=== PATIENT | female | born 1985 | race Caucasian/White ===

== ENCOUNTER 2018-04-02 22:30 | Emergency (ER) | payer OTHER ==
[2018-04-02] MEDS ORDERED: SODIUM CHLORIDE 0.9% 1,000 ML IV ONE (22:47)
[2018-04-02] MEDS ORDERED: METOCLOPRAMIDE 10 MG/2 ML VIAL IVP STA (22:47)
[2018-04-02] MEDS ORDERED: MORPHINE 2 MG/ML CARPUJECT IVP STA (22:47)
[2018-04-02 22:57] LABS: BILIRUBIN,URINE NEGATIVE (NEGATIVE); GLUCOSE, URINE (UA) NEGATIVE (NEGATIVE); KETONES,URINE (UA) NEGATIVE (NEGATIVE); LEUKOCYTE ESTERASE, URINE NEGATIVE (NEGATIVE); NITRITE,URINE NEGATIVE (NEGATIVE); OCCULT BLOOD,URINE LARGE (NEGATIVE); PROTEIN,URINE NEGATIVE (NEGATIVE); UROBILINOGEN,URINE 0.2 (NORMAL) E.U./dL (NORMAL)
[2018-04-02 22:58] LABS: BASOPHILS % (AUTO) 0.4 %; EOSINOPHILS # (AUTO) 0.2 10^3/uL (0.0-0.7); EOSINOPHILS % (AUTO) 2.3 %; HGB - HEMOGLOBIN 12.6 g/dL (12.0-16.0); LYMPHOCYTES # (AUTO) 4.4 10^3/uL (1.5-3.5); LYMPHOCYTES % (AUTO) 40.8 %; MEAN CORPUSCULAR HEMOGLOBIN 28.7 pg (27.0-31.0); MEAN CORPUSCULAR HGB CONC 33.2 g/dL (32.0-36.0); MEAN CORPUSCULAR VOLUME 86.4 fL (81.0-99.0); MEAN PLATELET VOLUME 8.8 fL (7.9-10.8); MONOCYTES # (AUTO) 0.8 10^3/uL (0.0-1.0); MONOCYTES % (AUTO) 7.7 %; NEUTROPHILS # (AUTO) 5.2 10^3/uL (1.5-6.6); NEUTROPHILS % (AUTO) 48.8 %; PLT - PLATELET COUNT 231 10^3/uL (130-450); RED CELL DISTRIBUTION WIDTH 13.3 % (12.0-15.0); WHITE BLOOD COUNT 10.7 x10^3/uL (4.8-10.8)
[2018-04-02 23:00] LABS: CLARITY,URINE HAZY (CLEAR); HCG UR QUAL NEGATIVE
[2018-04-02] MEDS ORDERED: KETOROLAC 15 MG/ML VIAL IVP STA (23:02)
[2018-04-02 23:03] LABS: AMORPHOUS SEDIMENT,UR Few /LPF; BACTERIA,URINE Moderate /HPF (None Seen); RBC,URINE TNTC /HPF (0-5); SQUAMOUS EPITHELIAL CELL,UR RARE Squamous (<= Few)
--- NOTE | 2018-04-02 23:03 | ED Physician Documentation ---
PD HPI ABD PAIN - Stated complaint Stated Complaint: ABD PX - Chief complaint Chief Complaint: Abd Pain - History obtained from History obtained from: Patient, Family - History of Present Illness Timing - onset: Other (The symptoms started 20 minutes prior to arrival) Timing - details: Abrupt onset Severity Comments: Moderate Quality: Cramping, Sharp, Stabbing Location: RUQ, RLQ, Other (Right flank) Improved by: Other (Nothing). No: Eating, Laying still, Vomiting Associated symptoms: Nausea. No: Fever, Dysuria Similar symptoms before: No diagnosis Recently seen: Not recently seen Review of Systems Constitutional: denies: Fever, Chills Eyes: denies: Discharge Ears: denies: Ear pain Nose: denies: Congestion Throat: denies: Sore throat Cardiac: denies: Chest pain / pressure Respiratory: denies: Dyspnea GI: reports: Abdominal Pain, Nausea : denies: Dysuria Skin: denies: Rash Musculoskeletal: denies: Neck pain Neurologic: denies: Syncope Immunocompromised: denies: Chemotherapy PD PAST MEDICAL HISTORY - Past Medical History Past Medical History: No - Present Medications Home Medications: Ambulatory Orders Medication Instructions Recorded Confirmed No Known Home Medications 04/02/18 04/02/18 Cephalexin [Keflex] 500 mg PO BID #10 capsule 04/03/18 Hydrocodone/Acetaminophen 1 - 2 each PO Q6H PRN #14 tablet 04/03/18 [Hydrocodon-Acetaminophen 5-325] Naproxen 500 mg PO BID PRN #60 tablet 04/03/18 Ondansetron HCl [Zofran] 4 mg PO Q6HR PRN #30 tablet 04/03/18 - Allergies Allergies/Adverse Reactions: Allergies Allergy/AdvReac Type Severity Reaction Status Date / Time No Known Drug Allergies Allergy Verified 04/02/18 22:38 - Social History Does the pt smoke?: No Smoking Status: Never smoker Does the pt drink ETOH?: No Does the pt have substance abuse?: No - Immunizations Immunizations are current?: Yes PD ED PE NORMAL - General General: Alert and oriented X 3. No: No acute distress (The patient appears quite uncomfortable) - HEENT HEENT: Atraumatic, PERRL, EOMI, Ears normal - Neck Neck: Supple, no meningeal sign - Cardiac Cardiac: RRR, Strong equal pulses - Respiratory Respiratory: No respiratory distress, Clear bilaterally - Abdomen Abdomen: Soft, Non distended. No: Non tender (The patient has tenderness in the right mid abdomen and right flank, no rebound or peritoneal signs) - Back Back: No: No CVA TTP (Right flank pain) - Derm Derm: Normal color - Extremities Extremities: No deformity, Normal ROM s pain, No edema - Neuro Neuro: Alert and oriented X 3, Normal speech - Psych Psych: Normal affect Results - Vitals Vitals: Vital Signs - 24 hr 04/02/18 04/02/18 04/03/18 22:30 23:01 00:22 Temperature 37.0 C Heart Rate 99 80 81 Respiratory 24 18 15 Rate Blood Pressure 138/101 H 129/109 H 115/66 O2 Saturation 99 95 98 Oxygen O2 Source Room air - Labs Labs: Laboratory Tests 04/02/18 04/02/18 04/02/18 22:52 22:52 22:52 WBC 10.7 RBC 4.40 Hgb 12.6 Hct 38.0 MCV 86.4 MCH 28.7 MCHC 33.2 RDW 13.3 Plt Count 231 MPV 8.8 Neut # (Auto) 5.2 Lymph # (Auto) 4.4 H Sharkey # (Auto) 0.8 Eos # (Auto) 0.2 Baso # (Auto) 0.0 Absolute Nucleated RBC 0.00 Nucleated RBC % 0.0 Sodium 137 Potassium 2.6 L Chloride 103 Carbon Dioxide 22 Anion Gap 12.0 BUN 17 Creatinine 0.9 Estimated GFR (MDRD) 72 L Glucose 142 H Calcium 9.4 Total Bilirubin 0.6 AST 27 ALT 18 Alkaline Phosphatase 45 Total Protein 6.8 Albumin 4.4 Globulin 2.4 Albumin/Globulin Ratio 1.8 Lipase 34 Urine Color YELLOW Urine Clarity HAZY Urine pH 8.0 H Ur Specific [place] 1.015 Urine Protein NEGATIVE Urine Glucose (UA) NEGATIVE Urine Ketones NEGATIVE Urine Occult Blood LARGE H Urine Nitrite NEGATIVE Urine Bilirubin NEGATIVE Urine Urobilinogen 0.2 (NORMAL) Ur Leukocyte Esterase NEGATIVE Urine RBC TNTC H Urine WBC 6-10 H Ur Squamous Epith Cells RARE Squamous Amorphous Sediment Few Urine Bacteria Moderate H Ur Microscopic Review INDICATED Urine Culture Comments INDICATED Urine HCG, Qual 04/02/18 22:52 WBC RBC Hgb Hct MCV MCH MCHC RDW Plt Count MPV Neut # (Auto) Lymph # (Auto) [place] # (Auto) Eos # (Auto) Baso # (Auto) Absolute Nucleated RBC Nucleated RBC % Sodium Potassium Chloride Carbon Dioxide Anion Gap BUN Creatinine Estimated GFR (MDRD) Glucose Calcium Total Bilirubin AST ALT Alkaline Phosphatase Total Protein Albumin Globulin Albumin/Globulin Ratio Lipase Urine Color Urine Clarity Urine pH Ur Specific [place] 1.015 Urine Protein Urine Glucose (UA) Urine Ketones Urine Occult Blood Urine Nitrite Urine Bilirubin Urine Urobilinogen Ur Leukocyte Esterase Urine RBC Urine WBC Ur Squamous Epith Cells Amorphous Sediment Urine Bacteria Ur Microscopic Review Urine Culture Comments Urine HCG, Qual NEGATIVE - Rads (name of study) CT abd/pelvis Radiology: Final report received (Mildly obstructing 3 x 2 mm distal right ureteral stone. ) PD MEDICAL DECISION MAKING - ED course ED course: On reevaluation the patient is resting comfortably and her symptoms appear to be under control. The patient's workup shows an acuteKidney stone in the right ureter. The patient also has hypokalemia but appears appropriate for outpatient management with increased foods with higher amounts of potassium. The patient's urine had bacteria in it, no other hard signs of an infected kidney stone and clinically there is no signs of sepsis. The patient will be given antibiotic and a culture will be sent. Presently, the patient appears appropriate for ongoing outpatient management. I discussed with the patient warning signs for sepsis and infected stone in addition to other complications of a kidney stone. I recommended that they should return to the emergency department immediately for any worsening or any concerns. They understand and agree. [place] tomorrow to get a referral to urology. Unfortunately our facility does not have urology on staff or on-call. Departure - Departure Disposition: 01 Home, Self Care Clinical Impression: Acute flank pain, Hypokalemia Urolithiasis Qualifiers: Urinary calculus location: ureter Qualified Code(s): N20.1 - Calculus of ureter Condition: Good Instructions: Hypokalemia Dc, Diet High Potassium Dc, Kidney Stones, ED Stone Renal W Colic Follow-Up: [facility] gabrielajamil [facility] [Provider Group] - Tomorrow ([place] for a referral to urology) Prescriptions: Ondansetron HCl [Zofran] 4 mg PO Q6HR PRN #30 tablet PRN Reason: Nausea / Vomiting Cephalexin [Keflex] 500 mg PO BID #10 capsule Hydrocodone/Acetaminophen [Hydrocodon-Acetaminophen 5-325] 1 - 2 each PO Q6H PRN #14 tablet PRN Reason: pain Naproxen 500 mg PO BID PRN #60 tablet PRN Reason: Pain Comments: [place], please asked them to arrange for an outpatient urology consultation. Please return to the emergency department immediately for worsening symptoms or any concerns.
[2018-04-02 23:12] LABS: ALBUMIN 4.4 g/dL (3.2-5.5); ALBUMIN/GLOBULIN RATIO 1.8 (1.0-2.2); BILIRUBIN,TOTAL 0.6 mg/dL (0.2-1.0); CALCIUM 9.4 mg/dL (8.5-10.3); CREATININE 0.9 mg/dL (0.4-1.0); TOTAL PROTEIN 6.8 g/dL (6.7-8.2)
[2018-04-02] MEDS ORDERED: IOPAMIDOL-300 100 ML VIAL ONE (23:12)
[2018-04-02] MEDS ORDERED: MAGNESIUM SULFATE 2 GRAM 2 GM/50 ML BAG IV ONE (23:39)
[2018-04-02] MEDS ORDERED: POTASSIUM CHLORIDE 20 MEQ TABLET PO STA (23:39)
[2018-04-02] MEDS ORDERED: IOPAMIDOL-300 100 ML VIAL IVP ONE (23:42)
[2018-04-02] MEDS ORDERED: HYDROmorphone 1 MG/ML CARPUJECT IVP STA (23:58)
[2018-04-02] MEDS ORDERED: diphenhydrAMINE INJ 50 MG/ML VIAL IVP STA (23:58)
[2018-04-02] MEDS ORDERED: PROMETHAZINE INJ 25 MG in SODIUM CHLORIDE 0.9% 50 ML IV STA (23:58)
--- NOTE | 2018-04-03 00:03 | CT Report ---
Reason: right sided pain Procedure Date: 04/02/2018 Accession Number: [id number] / [id number] Procedure: CT - Abdomen/Pelvis W/ CPT Code: FULL RESULT: EXAM: CT ABDOMEN AND PELVIS EXAM DATE: 04/02/2018 11:38 PM. CLINICAL HISTORY: Right sided abdominal pain. COMPARISONS: None. TECHNIQUE: Routine helical CT imaging was performed through the abdomen and pelvis. IV contrast: ISOVUE 300 100mL. Enteric contrast: No. Reconstructions: Coronal and sagittal. In accordance with CT protocol optimization, one or more of the following dose reduction techniques were utilized for this exam: automated exposure control, adjustment of mA and/or KV based on patient size, or use of iterative reconstructive technique. FINDINGS: Lung Bases: Unremarkable. Liver: Unremarkable. No suspicious masses. Gallbladder/Bile Ducts: Unremarkable. Spleen: Unremarkable. Pancreas: Unremarkable. Adrenal Glands: Unremarkable. Kidneys: Mildly obstructing 3 x 2 mm distal right ureteral stone within a centimeter of the UVJ. Additional tiny noninfected right renal stone. No suspicious masses or left hydronephrosis. Peritoneal Cavity/Bowel: No bowel obstruction or inflammatory process seen. No free air or significant free fluid. No masses or adenopathy. The appendix is normal. No excessive stool burden. Pelvic Organs: Bladder, uterus, and adnexa appear unremarkable. Vasculature: No aneurysms or other significant abnormality. Bones: No significant abnormality. Other: None. IMPRESSION: Mildly obstructing 3 x 2 mm distal right ureteral stone. RADIA
[2018-04-03] MEDS ORDERED: cefTRIAXone 1 GM in SODIUM CHLORIDE 0.9% MINIBAG 100 ML IV STA (00:08)
[2018-04-03] MEDS ORDERED: POTASSIUM CHLORIDE 20 MEQ TABLET PO STA (00:18)
[2018-04-03 01:11] VITALS: BP 104/64
== END 2018-04-03 01:17 | disposition home or self-care (01) ==
LOC: ED 22:30
DX: E87.6 Hypokalemia (principal); N20.1 Calculus of ureter
CPT/HCPCS: 36415; 74177; 80053; 81001; 81025; 83690; 85025; 87086; 96365; 96367; 96375; 99283; A9270; J1170; J1200; J2765; J7040; Q9967; 81003

== ENCOUNTER 2019-07-03 08:46 | Outpatient (CLI) | payer OTHER ==
[2019-07-03 10:01] LABS: HGB - HEMOGLOBIN 11.1 g/dL (12.0-16.0); MEAN CORPUSCULAR HEMOGLOBIN 29.1 pg (27.0-31.0); MEAN CORPUSCULAR HGB CONC 32.1 g/dL (32.0-36.0); MEAN CORPUSCULAR VOLUME 90.6 fL (81.0-99.0); MEAN PLATELET VOLUME 9.9 fL (7.9-10.8); RED BLOOD COUNT 3.82 10^6/uL (4.20-5.40); RED CELL DISTRIBUTION WIDTH 12.9 % (12.0-15.0); WHITE BLOOD COUNT 10.1 x10^3/uL (4.8-10.8)
== END 2019-07-03 08:47 | disposition home or self-care (01) ==
LOC: LAB 08:46
PROVIDERS: ATTEND Nurse Practitioner Obstetrics & Gynecology
DX: Z36.89 Encounter for other specified antenatal screening (principal)
CPT/HCPCS: 36415; 82950; 85027; 86850

== ENCOUNTER 2019-07-08 07:49 | Outpatient (CLI) | payer OTHER | END 2019-07-08 07:50 | disposition home or self-care (01) | LOC: LAB 07:49 | PROVIDERS: ATTEND Nurse Practitioner Obstetrics & Gynecology | DX: O99.810 Abnormal glucose complicating pregnancy (principal); Z3A.00 Weeks of gestation of pregnancy not specified | CPT/HCPCS: 36415; 82951; 82952 ==

== ENCOUNTER 2019-09-01 08:00 | Outpatient (CLI) | payer OTHER ==
[2019-09-01 19:33] LABS: TRICHOMONAS VAGINALIS DNA NEGATIVE (NEGATIVE)
== END 2019-09-01 23:59 | disposition home or self-care (01) ==
LOC: LAB.R 08:00
PROVIDERS: ATTEND Obstetrics & Gynecology
DX: Z36.89 Encounter for other specified antenatal screening (principal)
CPT/HCPCS: 87491; 87591; 87661; 87797

== ENCOUNTER 2019-09-23 10:32 | Outpatient (CLI) | payer OTHER ==
[2019-09-23 10:49] VITALS: BP 128/71
--- NOTE | 2019-09-23 12:37 | PROCEDURE REPORT ---
- HPI Diagnosis/Indication for NST: Intrauterine growth restriction Current EDU 10/01/19 Gestation 38 Weeks and 6 Days 3 Para 0 Vital Signs Temperature 98.2 F 09/23/19 10:48 Heart Rate 88 09/23/19 10:48 Respiratory Rate 16 09/23/19 10:48 Blood Pressure 128/71 09/23/19 10:48 O2 Saturation 99 09/23/19 10:48 Temperature 98.2 F 09/23/19 10:48 Heart Rate 88 09/23/19 10:48 Respiratory Rate 16 09/23/19 10:48 Blood Pressure 128/71 09/23/19 10:48 O2 Saturation 99 09/23/19 10:48 - NST Procedure NST Procedure Start Date 09/23/19 Start Time 10:40 Stop Time 11:07 Vibroacoustic Stimulation Used No Patient States Movement Yes EFM 135 mod cricket 15x15 accels no decels TOCO: irritable - Results and Plan Findings/Impression: 34 yo at 38w6d with uterine size/dates discrepancy Has growth us scheduled for tomorrow Cat I tracing FU pending results of us Otherwise routine PNC
== END 2019-09-23 11:15 | disposition home or self-care (01) ==
LOC: WFO 10:32 → FBP 10:34 → WFO 11:15
PROVIDERS: ATTEND Obstetrics & Gynecology
DX: O36.5930 Maternal care for other known or suspected poor fetal growth, third trimester, not applicable or unspecified (principal); Z3A.38 38 weeks gestation of pregnancy
CPT/HCPCS: 59025

== ENCOUNTER 2019-09-25 07:07 | Inpatient (IN) | payer OTHER ==
--- NOTE | 2019-09-25 10:55 | Ultrasound Report ---
Reason: UTERINE SIZE DATE DISCREPANCY Procedure Date: 09/25/2019 Accession Number: [id number] / [id number] Procedure: US - OB F/U or Repeat CPT Code: Final Report FULL RESULT: EXAM: FOLLOW-UP OBSTETRICAL ULTRASOUND EXAM DATE: 09/25/2019 07:08 AM. CLINICAL HISTORY: UTERINE SIZE DATE DISCREPANCY. COMPARISON: Report from [facility] 05/19/2019. TECHNIQUE: Real-time sonographic evaluation of the fetus performed by the women specialist. Multiple school admissions representative static images were saved for review. DATING: Established EGA 39 weeks 1 day with CHUY 10/01/2019 based on provided dating. EGA 35 weeks 4 days with CHUY 10/26/2019 based on the current ultrasound. GENERAL EVALUATION [place] . Cardiac activity: 137 bpm. movement: Visualized. Presentation: Cephalic. Placenta: Anterior position. Amniotic fluid: Normal. GOLD 9.1 cm. MVP 2.8 cm. BIOMETRY Bi-Parietal Diameter (BPD): 8.77 cm, 35 weeks 3 days Head Circumference (HC): 31.8 to cm, 35 weeks 6 days Abdominal Circumference (AC): 32.16 cm, 36 weeks 1 day Femur Length (FL): 6.78 cm, 34 weeks 6 days Estimated Weight: 2735 g, 4.9 percentile for 39 weeks 1 day. IMPRESSION: 1. [place] live intrauterine with gestational age 39 weeks 1 day based on provided dating. 2. Estimated weight is 4.9%. IUGR 3. Normal GOLD 9.1 cm RADIA The call report notification system was initiated by Dr. Lashell Hoffman at 10:32 AM on 09/25/2019. The above call report findings were discussed with Mahendra by Dr. Lashell Hoffman at 10:49 AM on 09/25/2019.
[2019-09-25] MEDS ORDERED: SODIUM CHLORIDE FLUSH 0.9% 10 ML SYRINGE IVP PRN (12:14)
[2019-09-25] MEDS ORDERED: fentaNYL 100 MCG/2 ML VIAL IVP PRN (12:46)
[2019-09-25] MEDS ORDERED: ACETAMINOPHEN 325 MG TABLET PO PRN (12:46)
[2019-09-25] MEDS ORDERED: ONDANSETRON 4 MG/2 ML VIAL IVP PRN (12:46)
[2019-09-25] MEDS ORDERED: OXYTOCIN/SODIUM CHLORIDE 500 ML IV PRN (12:46)
[2019-09-25] MEDS ORDERED: ONDANSETRON ODT 4 MG TABLET TL PRN (12:46)
--- NOTE | 2019-09-25 12:57 | HISTORY & PHYSICAL EXAMINATION ---
Admit History - Visit Reason Visit Reason: Other (Patient is a 34 yo at 39w1d with a complicated by IUGR here for IOL. Patient has been measuring size less than date. US was performed this am am returned with EFW 4.6%, normal GOLD. She presents for IOL. has been otherwise uncomplicated. CHUY by IUI dates which is consistent with Initial U/S: @ 9.4wks gestation and gives CHUY 10/01/2019. O pos/Rubella immune Gentic testing: CF neg; serum integrated screen negative FAS: 05/19/2019 WNL Anterior placenta, no previa. Size c/w dating. 3VC. Glucola 1 hr elevated (159); 3hr GTT WNL (88, 140, 108, 100) Influenza - declined TDAP 07/14/2019 GBS & GC/CT negx2 HSV: denies Breast pump Rx provided MOD:Anticipate ; desires epidural for pain management; surprise sex pp contraception: Last pap 08/09/18 wn) - : 3 Parity: 0 Care: positive: [facility] Risk/History: positive: Other (IUGR) Complications This : positive: Other (IUGR) Smoking Status: Never smoker - Mother's Labs Mother's Blood Type: positive: O Mother's RH: positive: Positive GBS: positive: Group B Step Negative Rubella Status: positive: Immune - Other Maternal History Other Maternal History: Patient is a 34 yo at 39w1d with a complicated by IUGR here for IOL. Patient has been measuring size less than dates. US was performed this am returned with EFW 4.6%, normal GOLD. She presents for IOL. No TCX/VB/LOF. Last seen in clinic 09/23/2019. SVE was 0/0/-3. has been otherwise uncomplicated. CHUY by IUI dates which is consistent with Initial U/S: @ 9.4wks gestation and gives CHUY 10/01/2019. O pos/Rubella immune Genetic testing: CF neg; serum integrated screen negative FAS: 05/19/2019 WNL Anterior placenta, no previa. Size c/w dating. 3VC. Glucola 1 hr elevated (159); 3hr GTT WNL (88, 140, 108, 100) Influenza - declined TDAP 07/14/2019 GBS & GC/CT negx2 HSV: denies Breast pump Rx provided MOD:Anticipate ; desires epidural for pain management; surprise sex pp contraception: Last pap 08/09/18 wnl. Meds/Allgy - Home Medications Home Medications: Ambulatory Orders Medication Instructions Recorded Confirmed No Known Home Medications 04/02/18 04/02/18 Cephalexin [Keflex] 500 mg PO BID #10 capsule 04/03/18 Hydrocodone/Acetaminophen 1 - 2 each PO Q6H PRN #14 tablet 04/03/18 [Hydrocodon-Acetaminophen 5-325] Naproxen 500 mg PO BID PRN #60 tablet 04/03/18 Ondansetron HCl [Zofran] 4 mg PO Q6HR PRN #30 tablet 04/03/18 - Allergies Allergies/Adverse Reactions: Allergies Allergy/AdvReac Type Severity Reaction Status Date / Time No Known Drug Allergies Allergy Verified 04/02/18 22:38 Review of Systems - Other Findings Other Findings: As per HPI, otherwise remaining systems are negative. Physical - Abdominal Exam Vital Signs: Temp Pulse Resp BP Pulse Ox 98.2 F 83 16 132/76 H 100 09/25/19 11:43 09/25/19 11:43 09/25/19 11:43 09/25/19 11:45 09/25/19 11:43 Contraction Intensity: positive: Irritability - Monitoring Heart Rate Baseline: 135 mod cricket 15x15 accels no decels Strip Review: positive: Category I - Presentation Presentation: positive: Vertex - Vaginal Exam Membranes: positive: Membranes intact Dilation (in cm): 0 Effacement (%): long Station: positive: -3 (SVE in clinic) Plan for Labor - Plan For Labor Plan for Labor: Patient is a 34 yo at 39w1d with IUGR/EFW 4.6% here for IOL IOL: -Unfavorable Bishops score -Proceed with cervical ripening *Misoprostol 50 mcg BC Q4H for 6 doess * Consider Cano balloon placement -Pitocin when favorable -Written informed consent obtained FWB: Vertex, GBS neg, Cat I tracing, EFW 4.6%ile -CEFM PAIN: Desires epidural -No nitrous per COVID restrictions -Fentanyl 50 mcg IV; max cumulative dose 200 mcg; not to be given after 7 cm Observation for cervical ripening; admit to in-patient care with ROM, active labor, start of pitocin
[2019-09-25] MEDS ORDERED: miSOPROStoL 200 MCG TABLET PR ONE (13:00)
[2019-09-25 13:02] LABS: BASOPHILS % (AUTO) 0.2 %; EOSINOPHILS # (AUTO) 0.1 10^3/uL (0.0-0.7); EOSINOPHILS % (AUTO) 0.8 %; HGB - HEMOGLOBIN 11.2 g/dL (12.0-16.0); LYMPHOCYTES # (AUTO) 1.2 10^3/uL (1.5-3.5); LYMPHOCYTES % (AUTO) 11.7 %; MEAN CORPUSCULAR HEMOGLOBIN 26.6 pg (27.0-31.0); MEAN CORPUSCULAR HGB CONC 32.3 g/dL (32.0-36.0); MEAN CORPUSCULAR VOLUME 82.4 fL (81.0-99.0); MEAN PLATELET VOLUME 10.6 fL (7.9-10.8); MONOCYTES # (AUTO) 0.7 10^3/uL (0.0-1.0); MONOCYTES % (AUTO) 6.7 %; NEUTROPHILS # (AUTO) 8.4 10^3/uL (1.5-6.6); NEUTROPHILS % (AUTO) 79.5 %; PLT - PLATELET COUNT 241 10^3/uL (130-450); RED BLOOD COUNT 4.21 10^6/uL (4.20-5.40); RED CELL DISTRIBUTION WIDTH 13.2 % (12.0-15.0); WHITE BLOOD COUNT 10.6 x10^3/uL (4.8-10.8)
[2019-09-25] MEDS: miSOPROStoL 100 MCG TABLET BC SCH ×2 (13:56→18:07)
[2019-09-25] MEDS ORDERED: SODIUM CHLORIDE FLUSH 0.9% 10 ML SYRINGE IVP SCH (17:00)
[2019-09-25] MEDS: LACTATED RINGERS 1,000 ML IV SCH (19:17)
[2019-09-25] MEDS ORDERED: ROPIVACAINE 0.2% 200 MG/100 ML BAG EP ONE (23:39)
[2019-09-26] MEDS ORDERED: ONDANSETRON 4 MG/2 ML VIAL IVP PRN (00:36)
[2019-09-26] MEDS ORDERED: METOCLOPRAMIDE 10 MG/2 ML VIAL IVP PRN (00:36)
[2019-09-26] MEDS ORDERED: ePHEDrine 50 MG/ML VIAL IVP PRN (00:36)
[2019-09-26] MEDS ORDERED: LACTATED RINGERS 500 ML IV ONE (00:36)
[2019-09-26] MEDS ORDERED: ROPIVACAINE 0.2% 200 MG/100 ML BAG EP PRN (00:36)
[2019-09-26] MEDS ORDERED: diphenhydrAMINE INJ 50 MG/ML VIAL IVP PRN (00:36)
[2019-09-26] MEDS ORDERED: NALBUPHINE 10 MG/ML AMP IVP PRN (00:36)
[2019-09-26] MEDS ORDERED: NALOXONE 0.4 MG/ML VIAL IVP PRN (00:36)
--- NOTE | 2019-09-26 00:36 | ANESTHESIA ---
Pre-Anesthesia VS, & Labs - Diagnosis IUP - Procedure labor epidural Vital Signs: Temp Pulse Resp BP Pulse Ox 36.7 C 83 16 124/72 100 09/25/19 13:20 09/25/19 13:20 09/25/19 13:20 09/25/19 13:20 09/25/19 13:20 Height 5 ft 3 in Weight (kg) 78.018 kg Body Mass Index 22.4 - Is Patient ?: Yes - Lab Results Current Lab Results: Laboratory Tests 09/25/19 12:45: WBC 10.6, RBC 4.21, Hgb 11.2 L, Hct 34.7 L, MCV 82.4, MCH 26.6 L , MCHC 32.3, RDW 13.2, Plt Count 241, MPV 10.6, Neut # (Auto) 8.4 H, Lymph # (Auto) 1.2 L, [place] # (Auto) 0.7, Eos # (Auto) 0.1, Baso # (Auto) 0.0, Absolute Nucleated RBC 0.00, Nucleated RBC % 0.0 Lab results reviewed: Yes Fish Bones: 09/25/19 12:45 Home Medications and Allergies Active Medications Acetaminophen (Tylenol) 650 mg PO Q6H PRN PRN Reason: Pain or Fever Fentanyl (Fentanyl) 50 mcg IVP Q1H PRN PRN Reason: PAIN Lactated Ringer's (Lr) 1,000 mls @ 100 mls/hr IV .Q10H [facility] Last Admin: 09/25/19 19:17 Dose: 999 mls/hr Oxytocin/Sodium Chloride (Pitocin/Sodium Chloride) 500 mls @ 999 mls/hr IV PRN PRN; Protocol PRN Reason: POST- HEMORR PREVENTION Misoprostol (Cytotec) 50 mcg BC Q4HR [facility] Last Admin: 09/25/19 18:07 Dose: 50 mcg Ondansetron HCl (Zofran Inj) 4 mg IVP Q4HR PRN PRN Reason: Nausea / Vomiting Ondansetron HCl (Zofran Odt) 4 mg TL Q4HR PRN PRN Reason: Nausea / Vomiting Last Admin: 09/25/19 23:40 Dose: 4 mg Sodium Chloride (Normal Saline Flush 0.9%) 10 ml IVP 0100,0900,1700 AMARIS Sodium Chloride (Normal Saline Flush 0.9%) 10 ml IVP PRN PRN PRN Reason: NEEDED PER PROVIDER ORDERS No Known Home Medications 04/02/18 Allergies/Adverse Reactions: Allergies Allergy/AdvReac Type Severity Reaction Status Date / Time No Known Drug Allergies Allergy Verified 04/02/18 22:38 Anes History & Medical History - Anesthetic History Anesthesia Complications: reports: No previous complications Family history of Anesthesia Complications: Denies Family history of Malignant Hyperthermia: Denies - Medical History Cardiovascular: reports: None Pulmonary: reports: None Smoking Status: Never smoker - Surgical History Orthopedic: ACL reconstruction - Obstetrical History : 3 Parity: 0 Events: positive: Other (IUGR) Complications: positive: Other (IUGR) Exam General: Alert, Oriented x3, Cooperative Dental: WNL Mouth Opening: Greater than 4 Fingerbreadths Neck Mobility: Normal Mallampati classification: I Thyromental Distance: 4-6 cm Respiratory: Lungs clear Cardiovascular: Regular rate Plan Anesthesia Type: Epidural Consent for Procedure(s) Verified and Reviewed: Yes Code Status: Attempt Resuscitation ASA classification: 2-Mild systemic disease Is this case an emergency?: No
[2019-09-26] MEDS ORDERED: LIDOCAINE 1%-EPI 1:100000 30 ML MDV ONE (00:44)
[2019-09-26] MEDS ORDERED: OXYTOCIN/SODIUM CHLORIDE 500 ML IV SCH (03:00)
[2019-09-26] MEDS ORDERED: ROPIVACAINE 0.2% 200 MG/100 ML BAG EP ONE (06:57)
--- NOTE | 2019-09-26 07:31 | CONSULTATION NOTE ---
Consultation Report: In to change epidural solution bag. Pt states she is becoming more aware of contraction pain as time passes. Sensory level assessd at L1. Side to side rolling has done little to help with discomfort @R, though pt describes it as minimal at this point. Epidural infusion converted from continuous w/PCEA to intermittent bolus with first dose given immediately. 10cc to be infused q50 mins moving forward. Pt describes a warm, fuzzy feeling without pain during contractions. VSS. Will continue to assess as needed.
--- NOTE | 2019-09-26 09:58 | PROVIDER PROGRESS NOTE ---
Labor Progress Note - Uterine Monitoring Uterine Monitoring Mode: positive: External toco Contraction Frequency (min/apart): 3 Contraction Intensity: positive: Moderate to strong Uterine Resting Tone: positive: Soft - Monitoring Monitor Mode: positive: External ultrasound Heart Rate Baseline: 157 Heart Rate Variability: positive: Minimal (0-5 bpm) Accelerations: positive: Absent Decelerations: positive: None Strip Review: positive: Category II - Vaginal Exam Dilation (in cm): c Effacement (%): 100% Station: 1 Cervical Position: Anterior - Labor Progress Note Labor Progress Note/Additional Text: DALIA. strip minimal varribility. Start pushing anticipate SGA baby .
[2019-09-26] MEDS: LACTATED RINGERS 1,000 ML IV SCH (10:35)
[2019-09-26] MEDS ORDERED: LIDOCAINE-MPF 1% 30 ML VIAL ONE (10:35)
[2019-09-26] MEDS ORDERED: BUPIVACAINE 0.25% PF 10 ML VIAL ONE (11:21)
[2019-09-26] MEDS ORDERED: SODIUM CHLORIDE 0.9% 10 ML ONE (11:21)
[2019-09-26] MEDS ORDERED: fentaNYL 100 MCG/2 ML VIAL ONE (11:21)
--- NOTE | 2019-09-26 11:26 | ANESTHESIA PROCEDURE NOTE ---
Anesthesia Epidural Template - Patient Report Patient Reports: positive: Inadequate control (Patient reports pain on right groin area with contractions. Epidural dosed with 100mcg fentanyl, 5ml of 0.25% bupivicaine and 3ml of PFNS. If bolus does not control pain, will consider replacing epidural.)
--- NOTE | 2019-09-26 13:32 | DELIVERY NOTE ---
Delivery Note - Labor Labor: positive: Augmented by oxytocin, Other (Misoprostal) - Delivery Method Delivery Method: positive: Spontaneous vaginal delivery - Presentation Presentation: positive: Vertex, DALIA - right occiput anterior - Nuchal Cord Nuchal Cord: positive: None - Anesthetic Anesthetic Type: - Amniotic Fluid Description Amniotic Fluid Description: positive: Light meconium, Other (minimal fluid. second stage meconium) - Episiotomy Type Episiotomy Type: positive: None - Laceration Laceration: positive: 2nd degree, Perineal - Suture Suture Type: positive: Vicryl Suture Size: positive: 3-0 - Delivery Outcome Delivery Outcome: positive: Livebirth (Apgars 9/9 weight 6 lb 9 oz) - [place]: positive: Placed in direct skin contact with mother, Bulb syringe, Stimulated sex: positive: Female - Cord Cord: positive: 3 vessels - Placenta Placenta: positive: Intact, Spontaneous - Estimated Blood Loss Estimated Blood Loss (in cc): 250 - Post Delivery Events Post Delivery Events: positive: No post delivery events - Delivery Comments (Free Text/Narrative) Delivery Comments (Free Text/Narrative): Patient was checked at 0 939 at which time she was noted to be complete and +1. Her strip was running in the 150s region minimal accelerations but no late decelerations noted. She started pushing at 0 951. She continued to have Early decelerations however she did not exhibit late decelerations the baseline reached 160s was given a 250 bolus of saline and her baseline return to the 140s 150s. She pushed well and at 1235 she delivered a live female infant right occiput anterior with Apgars 9 and 9. The was vigorous at time of delivery and placed on the maternal abdomen. The cord was doubly clamped and divided after it stopped pulsating. The infant did well. At time of delivery she suffered a second-degree laceration of the perineum. There was a flap of skin that was noted her repair was accomplished following delivery of the placenta at 1240 the placenta was inspected and noted to be intact. The repair was accomplished utilizing 3-0 Vicryl. Patient tolerated delivery well estimated blood loss was 250 cc.
[2019-09-26] MEDS ORDERED: WITCH HAZEL/GLYCERIN 1 PAD TOP PRN (13:53)
[2019-09-26] MEDS ORDERED: diphenhydrAMINE 25 MG CAPSULE PO PRN (13:53)
[2019-09-26] MEDS ORDERED: HYDROCORTISONE 1% CREAM 28 GM TUBE PR PRN (13:53)
[2019-09-26] MEDS ORDERED: oxyCODONE 5 MG TABLET PO PRN (13:53)
[2019-09-26] MEDS ORDERED: LACTATED RINGERS 1,000 ML IV SCH (14:00)
[2019-09-26] MEDS: IBUPROFEN 600 MG TABLET PO SCH ×2 (16:09→21:44)
[2019-09-26] MEDS: DOCUSATE SODIUM 100 MG CAPSULE PO SCH (20:57)
[2019-09-27] MEDS: IBUPROFEN 600 MG TABLET PO SCH ×4 (04:01→22:23)
[2019-09-27] MEDS: DOCUSATE SODIUM 100 MG CAPSULE PO SCH ×2 (10:15→22:24)
--- NOTE | 2019-09-27 12:00 | Discharge Plan ---
Discharge Plan Problem Reviewed?: Yes Disposition: Home, Self Care Condition: Good Diet: Regular Activity Restrictions: No Restrictions Shower Restrictions: No Driving Restrictions: No Weight Bearing: Full Weight Additional Instructions or Follow Up instructions: Nothing in the vagina for 6 weeks: No intercourse, tampons, douching Call for: -Fever greater than 100.5 -Pain that does not improve with pain medication -Heavy bleeding in which you are soaking a pad an hour for 2 hours in a row Patient declined prescriptions. All medications are available OTC: Ibuprofen 600 mg by mouth every 6 hours as needed for pain Acetaminophen 500-1000 mg by mouth every 8 hours as needed for pain Docusate 100-200 mg by mouth twice a day as needed for constipation FU in 6 weeks; ok to call if prefers to be seen sooner Lactaction support also available on Mother Baby Unit No Smoking: If you smoke, Please STOP! Call for help. Follow-up with: DEION FREITAS MD, PHD [Physician No Access] -
--- NOTE | 2019-09-27 12:03 | PROVIDER PROGRESS NOTE ---
Subjective - Prog Note Date Prog Note Date: 09/27/19 Prog Note Time: 12:01 - Subjective Subjective: Patient is up and ambulating, tolerating po, and voiding. Pain is well managed with pain medications. BF going well. Patient would like to be discharged if baby is cleared for discharge. Objective - Vital Signs/Intake & Output Reviewed Vital Signs: Yes Vital Signs: Vital Signs x48h Temp Pulse Resp BP Pulse Ox 09/27/19 11:46 98.1 F 88 16 121/72 100 09/27/19 07:55 97.9 F 68 16 113/66 100 09/27/19 05:20 98.1 F 69 16 109/66 98 Intake & Output: Intake & Output 09/24/19 09/25/19 09/26/19 09/27/19 23:59 23:59 23:59 23:59 Intake Total 1000 1750 250 Output Total 1395 Balance 1000 355 250 - Objective General Appearance: positive: No acute distress Neck: positive: Nml inspection Respiratory: positive: No respiratory distress, Breath sounds nml Cardiovascular: positive: Regular rate & rhythm Abdomen: positive: Non-tender, Other (FF below umbi) Skin: positive: Color nml Extremities: positive: Non-tender, No pedal edema - Lab Results Fish Bones: 09/25/19 12:45 Assessment/Plan - Problem List (1) Vaginal delivery Impression: PPD #1: Patient reports she is doing quite well. She is meeting goals for discharge. She is requesting to be discharged to home. OK to discharge to home if baby is cleared for discharge Declines discharge medications as they are OTC and available at home Routine DC instrucitons given.
[2019-09-28] MEDS: IBUPROFEN 600 MG TABLET PO SCH (06:00)
[2019-09-28 08:50] VITALS: BP 120/46
[2019-09-28] MEDS: DOCUSATE SODIUM 100 MG CAPSULE PO SCH (09:06)
--- NOTE | 2019-09-28 14:34 | Labor Flowsheet ---
Labor Flowsheet Datetime Report Generated by CPN: 09/28/2019 14:33 Datetime: 09/28/2019 08:48 VITAL SIGNS NBP Sys/Blanca/Mean (mmHg): 123 : 70 : 79 Pulse: 82 Datetime: 09/28/2019 06:25 SpO2 (%): 99 Datetime: 09/26/2019 14:46 Pain Presence: None/Denies Datetime: 09/26/2019 14:29 Stage of : Recovery PAIN Pain Scale: 0 Pain Assessment Comments: declined pain meds at this time Datetime: 09/26/2019 13:31 Respirations: 16 Temperature (C): 37.6 Temperature Route: Oral Datetime: 09/26/2019 12:37 MEDICATIONS Pitocin (milliunits): Increased to @ 999 Datetime: 09/26/2019 12:33 Provider Notified (Name): Dr.Gil Communication Comments: requested to attend delivery by DrDiana Giem Datetime: 09/26/2019 12:31 LaborFlag: Labor Datetime: 09/26/2019 12:30 UTERINE ACTIVITY Monitor Mode: External Frequency (min): 2-4 Quality: Strong Duration (sec): 60-70 Pattern: Normal: <= 5 Contractions in 10 Minutes Resting Tone (Palpate): Relaxed ASSESSMENT A Monitor Mode: External US FHR Baseline Rate : 145 Variability: Minimal - Undetectable to <=5 bpm Accelerations: None Decelerations: Variable Category: Category II Oxygen Method: Room Air STAGE 2 Pushing: Coached on Pushing; Urge to Push Pushing Position: Pushing with Contractions Pushing Progress: with Pushing; Pushing Effectively with Contractions Datetime: 09/26/2019 12:27 COMMUNICATION Communication: Provider at Bedside Datetime: 09/26/2019 11:53 Provider Reviewed Strip: Yes Datetime: 09/26/2019 11:45 Actions for Decelerations: Oxygen Applied Datetime: 09/26/2019 11:25 Comments: O2 removed Datetime: 09/26/2019 11:23 Pain Type: Contraction Pain Location: Abdomen Anesthesia Comments: at bedside, bolus epidural Datetime: 09/26/2019 11:15 Stage 2 Comments: maternal fatigue - patient states unable to push due to pain. Awaiting anesthesia . Datetime: 09/26/2019 11:10 Pain Coping: Requesting Pain Medication or Epidural Patient Position/Activity: Right Lateral Datetime: 09/26/2019 10:48 Patient Care Comments: 250ml LR bolus administered, per MD 500ml not indicated Datetime: 09/26/2019 10:32 PATIENT CARE IV/Blood Work: IV Bolus Started; IV Bolus Given ml @ 999 Datetime: 09/26/2019 10:30 Monitor Interventions for FHR: Ultrasound Adjusted Datetime: 09/26/2019 10:10 Station: 2 Exam by: Dr.Giem Vaginal Exam Comments: +3 with push Datetime: 09/26/2019 09:39 VAGINAL EXAM Dilatation (cm): 10.0 Effacement (%): 100 Position 'A': Right Occipital Anterior Datetime: 09/26/2019 09:24 Monitor Interventions for UA: [place] Adjusted Datetime: 09/26/2019 09:11 Antiemetics/Antacids: Zofran (mg) @ 4 Datetime: 09/26/2019 09:03 Anesthesia Level Check: T10- Umbilicus Datetime: 09/26/2019 08:06 I/O Interventions: Clear Liquids Given Datetime: 09/26/2019 07:52 Pain Relief Measures: Comfort Measures Comfort Measures: Breathing/Relaxation; Family Support Datetime: 09/26/2019 04:22 MATERNAL ASSESSMENT Level of Consciousness: Drowsy DTR's/Clonus: DTRs 2+; No Clonus Headache: Denies Nausea/Vomiting: Denies RUQ Epigastric Pain: Denies Datetime: 09/26/2019 04:00 Vibroacoustic Stim: Datetime: 09/26/2019 02:30 Cervix, Position: Midposition Datetime: 09/26/2019 01:17 TEACHING Instructional Method: Verbal Pain Management: Epidural; Pain Scale/Goals; Comfort Measures Datetime: 09/26/2019 01:12 ANESTHESIA Anesthesia Plans: Epidural Datetime: 09/26/2019 01:09 Epidural Procedure: Test Dose Datetime: 09/26/2019 00:30 Resting Tone IUP (mmHg): Datetime: 09/26/2019 00:20 Epidural Procedure Other: Pump Started Datetime: 09/26/2019 00:03 PROCEDURE TIME OUT Procedure Verify: Correct Patient Identity; Correct Side and Site are Marked; Accurate Procedure Co nsent Form; Agreement on Procedure to be Done; Correct Patient Position Datetime: 09/25/2019 21:55 Plan of Care: Plan of Care Discussed Labor/Induction: Labor Stages Datetime: 09/25/2019 19:44 Membrane Status: Intact Breath Sounds, Left: Clear and Equal Breath Sounds, Right: Clear and Equal Datetime: 09/25/2019 19:01 Notification Reason: Labor Status Datetime: 09/25/2019 18:13 Cervical Ripening Agents: Cytotec @ 50 Datetime: 09/25/2019 18:00 FHR Baseline Changes: No Baseline Change
--- NOTE | 2019-10-01 17:44 | DISCHARGE SUMMARY ---
"Discharge Summary Discharge Date: 09/27/19 Condition at Discharge: Good Discharge Disposition: Home, Self Care Discharge Facility Name: [facility] - DIAGNOSES Admission Diagnoses: IUP at 39w1d Suspected IUGR Discharge Diagnoses with Status of Each Condition: Same and Delivery of term gestation - HPI History of Present Illness: Patient is a 34 yo at 39w1d with a complicated by IUGR here for IOL. Patient has been measuring size less than date. US was performed this am am returned with EFW 4.6%, normal GOLD. She presents for IOL. has been otherwise uncomplicated. CHUY by IUI dates which is consistent with Initial U/S: @ 9.4wks gestation and gives CHUY 10/01/2019. O pos/Rubella immune Genetic testing: CF neg; serum integrated screen negative FAS: 05/19/2019 WNL Anterior placenta, no previa. Size c/w dating. 3VC. Glucola 1 hr elevated (159); 3hr GTT WNL (88, 140, 108, 100) Influenza - declined TDAP 07/14/2019 GBS & GC/CT negx2 HSV: denies Breast pump Rx provided MOD:Anticipate ; desires epidural for pain management; surprise sex pp contraception: Last pap 08/09/18 wn - CONSULTS | PROCEDURES Procedures: Normal spontaneous vaginal delivery - HOSPITAL COURSE Hospital Course: Patient was admitted at 39w1d ega and started misoprostol for cervical ripening. On 09/27/2019, she was noted to be complete at 0 939 am. She started pushing at 0 951. She pushed well and at 1235 she delivered a live female infant right occiput anterior with Apgars 9 and 9. The infant was vigorous at time of delivery and placed on the maternal abdomen. The cord was doubly clamped and divided after it stopped pulsating. The infant did well. At time of delivery she suffered a second-degree laceration of the perineum. There was a flap of skin that was noted her repair was accomplished following delivery of the placenta at 1240 the placenta was inspected and noted to be intact. The repair was accomplished utilizing 3-0 Vicryl. Patient tolerated delivery well estimated blood loss was 250 cc. course was uncomplicated. By PPD#1, seh was meeting goals for discharge and discharged to home. - ALLERGIES Allergies/Adverse Reactions: Allergies Allergy/AdvReac Type Severity Reaction Status Date / Time No Known Drug Allergies Allergy Verified 04/02/18 22:38 - MEDICATIONS Home Medications: Ambulatory Orders Medication Instructions Recorded Confirmed No Known Home Medications 04/02/18 04/02/18 Cephalexin [Keflex] 500 mg PO BID #10 capsule 04/03/18 Hydrocodone/Acetaminophen 1 - 2 each PO Q6H PRN #14 tablet 04/03/18 [Hydrocodon-Acetaminophen 5-325] Naproxen 500 mg PO BID PRN #60 tablet 04/03/18 Ondansetron HCl [Zofran] 4 mg PO Q6HR PRN #30 tablet 04/03/18 - LABS Result Diagrams: 09/25/19 12:45 - QUALITY (Female Hip Fx Only) Was patient sent home on osteoporosis medication?: Yes - FOLLOW UP Follow Up: 6 weeks with [facility] - TIME SPENT Time Spent in Discharge (Minutes): 30"
== END 2019-09-28 13:15 | disposition home or self-care (01) | DRG 807 ==
LOC: DI 07:07 → FBP 11:28 → DI 12:13 → FBP 12:14 → OBSVTOIN 09-26 00:27
PROVIDERS: ADMIT Obstetrics & Gynecology; ATTEND Obstetrics & Gynecology
PROC: 10E0XZZ Delivery of Products of Conception, External Approach (ICD-10-PCS; principal; 2019-09-26)
PROC: 0KQM0ZZ Repair Perineum Muscle, Open Approach (ICD-10-PCS; 2019-09-26)
DX: O36.5930 Maternal care for other known or suspected poor fetal growth, third trimester, not applicable or unspecified (principal); Z37.0 Single live birth; O70.1 Second degree perineal laceration during delivery; O77.0 Labor and delivery complicated by meconium in amniotic fluid; Z3A.39 39 weeks gestation of pregnancy
CPT/HCPCS: 59025; 76816; 85025; A9270; G0378; J7120

== ENCOUNTER 2021-02-09 08:00 | Outpatient (CLI) | payer OTHER ==
[2021-02-09 16:51] LABS: BILIRUBIN,URINE NEGATIVE (NEGATIVE); CLARITY,URINE CLEAR (CLEAR); GLUCOSE, URINE (UA) NEGATIVE (NEGATIVE); KETONES,URINE (UA) NEGATIVE (NEGATIVE); LEUKOCYTE ESTERASE, URINE NEGATIVE (NEGATIVE); NITRITE,URINE NEGATIVE (NEGATIVE); OCCULT BLOOD,URINE NEGATIVE (NEGATIVE); PROTEIN,URINE NEGATIVE (NEGATIVE); UROBILINOGEN,URINE 0.2 (NORMAL) E.U./dL (NORMAL)
[2021-02-09 17:34] LABS: BACTERIA,URINE Few /HPF (None Seen); RBC,URINE None Seen /HPF (0-5); SQUAMOUS EPITHELIAL CELL,UR FEW Squamous (<= Few); WBC,URINE 0-3 /HPF (0-5)
== END 2021-02-09 23:59 | disposition home or self-care (01) ==
LOC: LAB.WC 08:00
PROVIDERS: ATTEND Nurse Practitioner Obstetrics & Gynecology
DX: Z32.01 Encounter for pregnancy test, result positive (principal)
CPT/HCPCS: 81001; 87086

== ENCOUNTER 2021-02-09 08:00 | Outpatient (CLI) | payer OTHER ==
[2021-02-09 18:24] LABS: THYROID STIMULATING HORMONE 1.22 uIU/mL (0.34-5.60)
[2021-02-09 18:26] LABS: FREE T4 (FREE THYROXINE) 0.97 ng/dL (0.58-1.64)
== END 2021-02-09 23:59 | disposition home or self-care (01) ==
LOC: LAB.WCP 08:00
PROVIDERS: ATTEND Nurse Practitioner Obstetrics & Gynecology
DX: E03.9 Hypothyroidism, unspecified (principal)
CPT/HCPCS: 36415; 84439; 84443

== ENCOUNTER 2021-02-16 14:55 | Outpatient (CLI) | payer OTHER ==
--- NOTE | 2021-02-16 16:51 | Ultrasound Report ---
PROCEDURE: OB First Trimester INDICATIONS: POSITIVE TEST, DATING OUTSIDE/PRIOR DATING DATA: Last menstrual period (LMP): 12/08/2020. LMP-based estimated date of delivery (CHUY): 09/14/2021. First dating scan (date and location): 02/16/2021. Estimated date of delivery (CHUY) from first dating scan: 40 1022. The below data below was generated using the exam generated CHUY of 09/04/2021 TECHNIQUE: Real-time scanning was performed of the fetus and maternal pelvic organs, with image documentation. COMPARISON: None FINDINGS: Embryo: Single intrauterine gestational sac is seen with fetus and yolk sac seen. [place]-rump length measures 4.56 cm. Estimated gestational age is 11 weeks, 3 days. No evidence of subchorionic hemorrha ge. Heart rate: 162 bpm. Measurement variability in dating: +/- 4 weeks by LMP, +/- 7 days by mean sac diameter (use before 6 weeks gestation if crown-rump length not able to be measured), +/- 5 days by crown-rump length (6-12 weeks gestation). Maternal organs: Right ovary is visualized and is within normal limits. Corpus luteal cyst is noted i n left ovary and measures 1.5 x 1.1 cm in size. IMPRESSION: 1. Single live intrauterine with fetus and yolk sac seen. heart rate is 162 bpm. Renu mated gestational age based on current study is 11 weeks, 3 days. 2. No evidence of subchorionic hemorrhage. 3. Corpus luteal cyst in left ovary as above. Reviewed by: Richard Pizano MD on 02/16/2021 4:50 PM PDT Approved by: Richard Pizano MD on 02/16/2021 4:50 PM PDT Station ID: [id number]
== END 2021-02-16 14:56 | disposition home or self-care (01) ==
LOC: DI 14:55
PROVIDERS: ATTEND Nurse Practitioner Obstetrics & Gynecology
DX: Z32.01 Encounter for pregnancy test, result positive (principal); O34.81 Maternal care for other abnormalities of pelvic organs, first trimester; N83.12 Corpus luteum cyst of left ovary; Z3A.11 11 weeks gestation of pregnancy

== ENCOUNTER 2021-03-02 11:15 | Outpatient (CLI) | payer OTHER ==
[2021-03-02 18:29] LABS: BASOPHILS % (AUTO) 0.2 %; EOSINOPHILS # (AUTO) 0.2 10^3/uL (0.0-0.7); HCT - HEMATOCRIT 37.4 % (37.0-47.0); HGB - HEMOGLOBIN 12.2 g/dL (12.0-16.0); LYMPHOCYTES # (AUTO) 1.8 10^3/uL (1.5-3.5); LYMPHOCYTES % (AUTO) 19.1 %; MEAN CORPUSCULAR HEMOGLOBIN 28.5 pg (27.0-31.0); MEAN CORPUSCULAR HGB CONC 32.6 g/dL (32.0-36.0); MEAN CORPUSCULAR VOLUME 87.4 fL (81.0-99.0); MEAN PLATELET VOLUME 11.1 fL (7.9-10.8); MONOCYTES # (AUTO) 0.5 10^3/uL (0.0-1.0); MONOCYTES % (AUTO) 4.9 %; NEUTROPHILS % (AUTO) 73.3 %; PLT - PLATELET COUNT 242 10^3/uL (130-450); RED BLOOD COUNT 4.28 10^6/uL (4.20-5.40); RED CELL DISTRIBUTION WIDTH 13.4 % (12.0-15.0); WHITE BLOOD COUNT 9.6 x10^3/uL (4.8-10.8)
[2021-03-04 12:15] LABS: HEPATITIS B SURFACE ANTIGEN NON-REACTIVE (NON-REACTIVE)
[2021-03-04 12:17] LABS: HEPATITIS C ANTIBODY NON-REACTIVE (NON-REACTIVE)
[2021-03-04 15:11] LABS: HIV AG/AB 4TH GEN NON-REACTIVE (NON-REACTIVE)
== END 2021-03-02 11:16 ==
LOC: LAB.WCP 11:15
PROVIDERS: ATTEND Obstetrics & Gynecology
DX: Z32.01 Encounter for pregnancy test, result positive (principal)
CPT/HCPCS: 36415; 85025; 86592; 86762; 86787; 86803; 86850; 86900; 86901; 87340; 87389

== ENCOUNTER 2021-03-04 09:06 | Outpatient (CLI) | payer SELFPAY | END 2021-03-04 09:07 | disposition home or self-care (01) | LOC: LAB 09:06 | PROVIDERS: ATTEND Obstetrics & Gynecology | DX: O09.529 Supervision of elderly multigravida, unspecified trimester (principal) | CPT/HCPCS: 36415 ==